=== PATIENT | female | born 1940 | race American Indian/Alaskan Native ===

== ENCOUNTER 2016-05-11 13:45 | Outpatient (CLI) | payer MEDICARE, OTHER ==
--- NOTE | 2016-05-12 08:45 | Mammography Report ---
BILATERAL MAMMOGRAM: FINDINGS: The breast tissue is heterogeneously dense, which could obscure detection of small masses (approximately 50%-75% glandular). No mass, distortion, suspicious calcification, or skin change is seen. There are no significant changes when compared to prior examination in March 2015. CAD was utilized. IMPRESSION: Negative mammogram. There is no mammographic evidence of malignancy. RECOMMENDATION: Follow-up per ACS guidelines. BI-RADS CATEGORY: 1 = Negative ACR BI-RADS MAMMOGRAPHIC CODES: 0 = Needs additional imaging evaluation; 1 = Negative; 2 = Benign; 3 = Probably benign; 4 = Suspicious; 5 = Malignant; 6 = Known biopsy-proven malignancy COMMENT: 1. Dense breast tissue, i.e., adenosis, fibrocystic changes, etc., may obscure an underlying neoplasm. 2. Approximately 10% of cancers are not detected with mammography. 3. A negative mammography report should not delay biopsy if a clinically suspicious mass is present. COMMENT: Patient follow-up letters are generated in [employer].
--- NOTE | 2016-05-12 10:56 | Mammography Report ---
BONE DENSITY STUDY: DEFINITIONS: BMD = Bone Mineral Density T-score = BMD related to mean peak bone mass of young adult (mean expressed in Standard Deviation) Z-score = Age matched BMD expressed in SD World Health Organization (WHO) Diagnostic Criteria Normal T-score > -1 SD Osteopenia T-score between -1 and -2.4 SD Osteoporosis T-score -2.5 SD or below FINDINGS: The weighted average BMD of lumbar spine L1-L4 is 1.007 with a T-score of -0.4. The weighted average BMD of the left hip is 0.822 with a T-score of -1.0. Compared to the prior examination in February 2011 the lumbar spine has shown a slight overall improvement with slight worsening in the left hip. IMPRESSION: The patient's average T-score is diagnostic for normal bone density and low relative risk for fracture. NOTE: BMD is not the only risk factor for fracture; also consider factors such as the patient's age, risk of falling, previous osteoporotic fracture, family history of osteoporotic fractures, current smoker, and low body weight. Connors's triangle is a region of interest in femur, predominantly of trabecular bone. It is not a true anatomic site, and ISCD does not recommend its use clinically.
== END 2016-05-11 13:46 | disposition home or self-care (01) ==
LOC: MAMMO 13:45
PROVIDERS: ATTEND Internal Medicine
DX: Z12.31 Encounter for screening mammogram for malignant neoplasm of breast (principal); Z13.820 Encounter for screening for osteoporosis
CPT/HCPCS: 77080; G0202; 77067

== ENCOUNTER 2017-05-16 11:47 | Outpatient (CLI) | payer MEDICARE, OTHER ==
--- NOTE | 2017-05-16 14:13 | Mammography Report ---
BILATERAL MAMMOGRAM: FINDINGS: The breast tissue is heterogeneously dense, which could obscure detection of small masses (approximately 50%-75% glandular). No mass, distortion, suspicious calcification, or skin change is seen. No significant changes when compared to prior exams dating back to March 2015. CAD was utilized. IMPRESSION: Negative mammogram. There is no mammographic evidence of malignancy. RECOMMENDATION: Follow-up per ACS guidelines. BI-RADS CATEGORY: 1 = Negative ACR BI-RADS MAMMOGRAPHIC CODES: 0 = Needs additional imaging evaluation; 1 = Negative; 2 = Benign; 3 = Probably benign; 4 = Suspicious; 5 = Malignant; 6 = Known biopsy-proven malignancy COMMENT: 1. Dense breast tissue, i.e., adenosis, fibrocystic changes, etc., may obscure an underlying neoplasm. 2. Approximately 10% of cancers are not detected with mammography. 3. A negative mammography report should not delay biopsy if a clinically suspicious mass is present. COMMENT: Patient follow-up letters are generated in [employer].
== END 2017-05-16 11:48 | disposition home or self-care (01) ==
LOC: MAMMO 11:47
PROVIDERS: ATTEND Internal Medicine
DX: Z12.31 Encounter for screening mammogram for malignant neoplasm of breast (principal)
CPT/HCPCS: 77067

== ENCOUNTER 2018-05-17 11:20 | Outpatient (CLI) | payer MEDICARE, OTHER ==
--- NOTE | 2018-05-20 09:19 | Mammography Report ---
BILATERAL DIGITAL SCREENING MAMMOGRAM with CAD: 05/17/18 11:20:00 CLINICAL: Routine screening. COMPARISON:05/16/17 and mammograms going back to 02/15/11 FINDINGS: The breasts are heterogeneously dense, which may obscure small masses. A right asymmetry on the CC view requires additional imaging.No architectural distortion or suspicious calcifications.The left breast is negative. IMPRESSION: Right asymmetry requiring further workup. BI-RADS CATEGORY: 0 -- Additional Imaging Evaluation Required RECOMMENDATION: Recall for right lateralmedial, rolled CC and spot magnification CC views and right breast ultrasound if needed. ACR BI-RADS MAMMOGRAPHIC CODES: 0 = Needs additional imaging evaluation; 1 = Negative; 2 = Benign; 3 = Probably benign; 4 = Suspicious; 5 = Malignant; 6 = Known biopsy-proven malignancy COMMENT: 1. Dense breast tissue, i.e., adenosis, fibrocystic changes, etc., may obscure an underlying neoplasm. 2. Approximately 10% of cancers are not detected with mammography. 3. A negative mammography report should not delay biopsy if a clinically suspicious mass is present. COMMENT: Patient follow-up letters are generated via our [employer] application.
== END 2018-05-17 11:21 | disposition home or self-care (01) ==
LOC: MAMMO 11:20
PROVIDERS: ATTEND Internal Medicine
DX: Z12.31 Encounter for screening mammogram for malignant neoplasm of breast (principal); I10 Essential (primary) hypertension; Z90.49 Acquired absence of other specified parts of digestive tract
CPT/HCPCS: 77067

== ENCOUNTER 2018-12-16 13:15 | Emergency (ER) | payer MEDICARE, OTHER ==
[2018-12-16 13:55] VITALS: BP 139/76
--- NOTE | 2018-12-16 13:56 | Emergency Department Report ---
Blank Doc - Documentation Documentation: 78-year-old female that presents with left foot pain s/p fall. This initial assessment/diagnostic orders/clinical plan/treatment(s) is/are subject to change based on patient's health status, clinical progression and re- assessment by fellow clinical providers in the ED. Further treatment and workup at subsequent clinical providers discretion. Patient/guardians urged not to elope from the ED as their condition may be serious if not clinically assessed and managed. Initial orders include: 1- Patient sent to [facility] for further evaluation and treatment 2- xrays
--- NOTE | 2018-12-16 14:46 | Emergency Department Report ---
HPI - General Chief Complaint: Extremity Injury, Lower Time Seen by Provider: 12/16/18 13:55 - HPI HPI: 78-year-old -[place] female presents to the emergency department with complaint of foot pain for the past 2 days since she had a fall. The patient says that she tripped and landed on her knees and then fell and hit her head. No loss of consciousness. She has no complaints of any current headache or any neurological deficits. Her only complaint at this time is some left foot pain around the third, fourth and fifth toes and to the dorsal foot. No obvious deformity. She is able to bear weight but has pain and difficulty doing so. She has not taken anything for her symptoms prior to presentation. ED Past Medical Hx - Past Medical History Previous Medical History?: Yes Hx Hypertension: Yes - Surgical History Past Surgical History?: Yes Hx Cholecystectomy: Yes - Social History Smoking Status: Former Smoker Substance Use Type: None - Medications Home Medications: Home Medications Medication Instructions Recorded Confirmed Last Taken Type Hydrochlorothiazide 25 mg PO DAILY 12/18/14 12/18/14 12/18/14 History Klor-Con 10 10 meq PO DAILY 12/18/14 12/18/14 12/18/14 History Lisinopril 10 mg PO DAILY PRN 12/18/14 12/18/14 12/18/14 19:00 History Verapamil HCl 240 mg PO DAILY 12/18/14 12/18/14 12/18/14 History ED Review of Systems ROS: Stated complaint: LT FOOT INJURY Other details as noted in HPI Comment: All other systems reviewed and negative Constitutional: denies: chills, fever Respiratory: denies: shortness of breath Cardiovascular: denies: chest pain Gastrointestinal: denies: abdominal pain Musculoskeletal: arthralgia. denies: back pain Skin: denies: rash, lesions Neurological: denies: headache, weakness, numbness, paresthesias Physical Exam - Physical Exam Vital Signs: Vital Signs 12/16/18 13:53 Temperature 97.7 F Pulse Rate 84 Respiratory 18 Rate Blood Pressure 139/76 O2 Sat by Pulse 98 Oximetry Physical Exam: GENERAL: The patient is well-developed well-nourished. HENT: Normocephalic. Atraumatic. Patient has moist mucous membranes. EYES: Extraocular motions are intact. NECK: Supple. Trachea is midline. ABDOMEN: Abdomen is soft, nontender. Patient has normal bowel sounds. There is no abdominal distention. SKIN: Skin is warm and dry. NEURO: The patient is awake, alert, and oriented. The patient is cooperative. The patient has no focal neurologic deficits. Normal speech. Cranial nerves II through XII grossly intact. MUSCULOSKELETAL: There is some tenderness to palpation to the or so left foot to the proximal and midfoot. +2 over 4 dorsalis pedis pulse and capillary refill less than 2 seconds. ED Course Vital Signs 12/16/18 13:53 Temperature 97.7 F Pulse Rate 84 Respiratory 18 Rate Blood Pressure 139/76 O2 Sat by Pulse 98 Oximetry ED Medical Decision Making - Radiology Data Radiology results: image reviewed interpreted by me: X-ray of the left foot shows a mid to distal fourth metatarsal shaft fracture - Medical Decision Making This patient presents with some left foot pain that occurred 2 days after having a fall. X-ray shows a midshaft fracture of the fourth metatarsal. She is neurovascularly intact. Placed in a postop shoe and given crutches to be nonweightbearing. Patient has been given a referral for podiatry and an orthopedist. She will return to the ER with any worsening of her symptoms or any acute distress. - Differential Diagnosis foot fracture, strain/sprain, contusion, tendinitis Critical Care Time: No Critical care attestation.: If time is entered above; I have spent that time in minutes in the direct care of this critically ill patient, excluding procedure time. ED Disposition Clinical Impression: Fracture of fourth metatarsal bone of left foot Qualifiers: Encounter type: initial encounter Fracture type: closed Fracture alignment: nondisplaced Qualified Code(s): S92.345A - Nondisplaced fracture of fourth metatarsal bone, left foot, initial encounter for closed fracture Disposition: TO HOME OR SELFCARE Is pt being admited?: No Condition: Stable Instructions: Foot Fracture in Adults (ED) Additional Instructions: I have given you a referral for a environment artist, Dr. King, and an orthopedist, Dr. Obregon, to follow up regarding your foot fracture. Please try to use the crutches and remain nonweightbearing to the affected left foot. Return to the emergency Department with any worsening of your symptoms or any acute distress. Referrals: NERY KING DPM [Staff Physician] - 2-3 Days MARCIE OBREGON MD [Staff Physician] - 2-3 Days Time of Disposition: 15:28
--- NOTE | 2018-12-16 15:07 | XRay Report ---
LEFT FOOT, 3 VIEWS INDICATION: left foot pain. COMPARISON: None. IMPRESSION: An oblique minimally displaced fracture is identified in the distal shaft of the fourth metatarsal. No calcified callus is identified at this time. The remaining bony structures and joint s paces are unremarkable. Mild distal soft tissue swelling is noted. No significant DJD. Signer Name: Elgin Lay Jr, MD Signed: 12/16/2018 3:03 PM Workstation Name: [id number]
== END 2018-12-16 15:28 | disposition home or self-care (01) ==
LOC: ED 13:15
DX: S92.345A Nondisplaced fracture of fourth metatarsal bone, left foot, initial encounter for closed fracture (principal); I10 Essential (primary) hypertension; Z90.49 Acquired absence of other specified parts of digestive tract; Z87.891 Personal history of nicotine dependence; Z79.899 Other long term (current) drug therapy; W01.198A Fall on same level from slipping, tripping and stumbling with subsequent striking against other object, initial encounter; Y93.89 Activity, other specified; Y92.89 Other specified places as the place of occurrence of the external cause; Y99.8 Other external cause status
CPT/HCPCS: 99283

== ENCOUNTER 2019-01-09 13:08 | Outpatient (CLI) | payer MEDICARE, OTHER ==
--- NOTE | 2019-01-09 14:35 | Mammography Report ---
RIGHT DIGITAL DIAGNOSTIC MAMMOGRAM WITH CAD 01/09/2019 RIGHT LIMITED BREAST ULTRASOUND INDICATION: Follow-up asymmetry identified at screening. ABN MAMMO TECHNIQUE: Digital right mammographic imaging was performed. Spot compression views were obtained. T his examination was interpreted with the benefit of Computer-Aided Detection (CAD) analysis. COMPARISON: 05/17/2018 FINDINGS: Breast Density: The breast is heterogeneously dense, which may obscure small masses. MAMMOGRAPHIC FINDINGS: A retroareolar asymmetry persists with spot compression on CC view. The MLO vi ew is negative. ULTRASOUND FINDINGS: Targeted ultrasound evaluation was performed of the area of interest. Ultrasou nd of the upper right breast was performed and demonstrated no mass, cyst or shadowing. A prominent d ilated retroareolar duct at 9:00 appears may correlate with the mammographic density. IMPRESSION: Benign mammographic asymmetry and benign focal duct ectasia. Follow up recommendation: Routine yearly BI-RADS Category 2: Benign. A "normal" or negative report should not discourage follow up or biopsy of a clinically significant f inding. A written summary of these findings will be mailed to the patient. The patient will be entered into a mammography reporting system which will generate a reminder letter for the patient's next appointmen t at the appropriate interval. According to the [employer], yearly mammograms are recommended starting at age 40 and continuing as long as a woman is in good health. Breast MRI is recommended for women with an nakul roximately 20-25% or greater lifetime risk of breast cancer, including women with a strong family his tory of breast or ovarian cancer and women who have been treated for Hodgkin's disease. Signer Name: Kayden Lee MD Signed: 01/09/2019 2:31 PM Workstation Name: [id number]
== END 2019-01-09 13:09 | disposition home or self-care (01) ==
LOC: MAMMO 13:08
PROVIDERS: ATTEND Family Medicine
DX: R92.8 Other abnormal and inconclusive findings on diagnostic imaging of breast (principal)

== ENCOUNTER 2020-10-20 11:38 | Outpatient (CLI) | payer MEDICARE, OTHER ==
--- NOTE | 2020-10-20 13:09 | Mammography Report ---
DIGITAL SCREENING MAMMOGRAM WITH CAD, 10/20/2020 CLINICAL INFORMATION / INDICATION: Routine screening mammography. SCREENING MAMMOGRAM TECHNIQUE: Digital bilateral 2D mammography was obtained in the craniocaudal and mediolateral obliqu e projections. This examination was interpreted with the benefit of Computer-Aided Detection analysis . COMPARISON: 05/17/2018. FINDINGS: Breast Density: The breasts are heterogeneously dense, which may obscure small masses. No dominant mass, suspicious calcifications, or architectural distortion in either breast. IMPRESSION: No mammographic evidence of malignancy. Follow up recommendation: Routine yearly BI-RADS Category 1: Negative. A "normal" or negative report should not discourage follow up or biopsy of a clinically significant f inding. A written summary of these findings will be mailed to the patient. The patient will be entered into a mammography reporting system which will generate a reminder letter for the patient's next appointmen t at the appropriate interval. The [employer] recommends yearly mammograms starting at age 40 and continuing as l annie as a woman is in good health. Breast MRI is recommended for women with an approximate 20-25% or greater lifetime risk of breast cancer, including women with a strong family history of breast or ova fabian cancer or who have been treated for Hodgkin's disease. Signer Name: Chuck Vargas MD Signed: 10/20/2020 1:05 PM Workstation Name: [id number]
== END 2020-10-20 11:39 | disposition home or self-care (01) ==
LOC: MAMMO 11:38
PROVIDERS: ATTEND Internal Medicine
DX: Z12.31 Encounter for screening mammogram for malignant neoplasm of breast (principal); N64.89 Other specified disorders of breast
CPT/HCPCS: 77067